=== PATIENT | female | born 1960 | race Caucasian/White ===

== ENCOUNTER 2020-06-01 15:11 | Emergency (ER) | payer BC ==
[2020-06-01 15:42] VITALS: BP 123/64; PULSE 97; TEMP 97.2; BMI 32.3
[2020-06-01 17:27] LABS: BASO % 1.3 % (0-2.0); EOS % 2.5 % (0-4.5); HEMOGLOBIN 13.2 GM/dL (10.7-15.3); LYMPH % 28.4 % (8-40); MCH 32.5 pg (25.7-33.7); MCHC 33.9 g/dl (32.0-36.0); MONO % 7.2 % (3.8-10.2); NEUT % 60.6 % (42.8-82.8); PLATELET COUNT 276 K/MM3 (134-434); RBC 4.06 M/mm3 (3.60-5.2); RDW 12.8 % (11.6-15.6); WHITE BLOOD COUNT 10.6 K/mm3 (4.0-10.0)
[2020-06-01 17:39] LABS: CHLORIDE 106 mmol/L (98-107); SODIUM 139 mmol/L (136-145)
[2020-06-01 17:42] LABS: CALCIUM 8.8 mg/dL (8.5-10.1)
[2020-06-01 17:43] LABS: ALBUMIN 3.3 g/dl (3.4-5.0); ANION GAP 4 MMOL/L (8-16); BLOOD UREA NITROGEN 15.3 mg/dL (7-18); CO2 28 mmol/L (21-32); GLUCOSE,RANDOM 186 mg/dL (74-106)
[2020-06-01 17:46] LABS: CREATININE 0.6 mg/dL (0.55-1.3); SGOT/AST 16 U/L (15-37); SGPT/ALT 42 U/L (13-61)
[2020-06-01 17:47] LABS: BILIRUBIN,TOTAL 0.2 mg/dL (0.2-1); TOT PROT 6.8 g/dl (6.4-8.2)
[2020-06-01 17:49] LABS: ALK PHOS 82 U/L (45-117)
[2020-06-01 18:25] LABS: LDH 204 U/L (84-246)
== END 2020-06-01 19:03 | disposition home or self-care (01) ==
LOC: JER 15:11
DX: Z20.822 Contact with and (suspected) exposure to COVID-19 (principal)
CPT/HCPCS: 36415; 71046-TC-FY; 80053; 82550; 82728; 83615; 84484; 85025; 86140; 93005; 93010; 99285-25; C9803; U0003

== ENCOUNTER 2020-08-16 10:23 | Emergency (ER) | payer BC ==
[2020-08-16 10:39] VITALS: BP 164/83; TEMP 98.5; BMI 29.2
[2020-08-16] MEDS ORDERED: ALBUTEROL SO4 2.5/IPRATROPIUM 0.5 INH SOL 3 ML VIAL.NEB. NEB ONE ×2 (10:52→10:55)
[2020-08-16] MEDS ORDERED: predniSONE 20 MG TABLET (UD) PO ONE (10:52)
[2020-08-16] MEDS ORDERED: predniSONE 20 MG TABLET (UD) ONE (10:55)
[2020-08-16] MEDS ORDERED: ALBUTEROL SO4 0.083% IH SOL 2.5 MG/3 ML VIAL.NEB. NEB ONE ×4 (13:13→15:15)
[2020-08-16 14:36] VITALS: PULSE 88
[2020-08-16] MEDS ORDERED: ACETAMINOPHEN 325 MG TABLET (FP) ONE (15:37)
== END 2020-08-16 17:07 | disposition home or self-care (01) ==
LOC: JER 10:23
PROC: 3E0F7GC Introduction of Other Therapeutic Substance into Respiratory Tract, Via Natural or Artificial Opening (ICD-10-PCS; principal; 2020-08-16)
DX: J45.21 Mild intermittent asthma with (acute) exacerbation (principal)
CPT/HCPCS: 71045-TC-FY; 99285-25; C9803; U0003; U0005

== ENCOUNTER 2021-10-29 13:29 | Observation (INO) | payer BC ==
[2021-10-29 14:03] VITALS: TEMP 98.9; BMI 30.2
[2021-10-29 15:09] LABS: HEMATOCRIT 43.5 % (32.4-45.2); HEMOGLOBIN 14.5 GM/dL (10.7-15.3); MCH 32.1 pg (25.7-33.7); MCHC 33.3 g/dl (32.0-36.0); MEAN CELL VOLUME 96.4 fl (80-96); PLATELET COUNT 239 10^3/uL (134-434); RBC 4.51 M/mm3 (3.60-5.2); RDW 12.4 % (11.6-15.6); WHITE BLOOD COUNT 13.7 K/mm3 (4.0-10.0)
[2021-10-29] MEDS ORDERED: ACETAMINOPHEN 1000 MG/100 ML BAG IVPB ONE (15:23)
[2021-10-29] MEDS ORDERED: FAMOTIDINE 20 MG/50 ML IVPB 20 MG/50 ML MG IVPB ONE ×2 (15:23→15:34)
[2021-10-29] MEDS ORDERED: MAG HYDROX/AL HYDROX/SIMETH -MYLANTA- ORAL SUSPENSION PO ONE (15:23)
[2021-10-29 15:30] LABS: CALCIUM 9.1 mg/dL (8.5-10.1)
[2021-10-29 15:31] LABS: ALBUMIN 3.5 g/dl (3.4-5.0)
[2021-10-29] MEDS ORDERED: ACETAMINOPHEN INJECTION 100 ML IVPB ONE (15:33)
[2021-10-29 15:34] LABS: CREATININE 0.6 mg/dL (0.55-1.3)
[2021-10-29] MEDS ORDERED: MAG HYDROX/AL HYDROX/SIMETH 30 ML UNIT-DOSE CUP ONE (15:34)
[2021-10-29 15:36] LABS: BILIRUBIN,TOTAL 0.3 mg/dL (0.2-1); TOT PROT 7.3 g/dl (6.4-8.2)
[2021-10-29] MEDS ORDERED: ASPIRIN 81 MG CHEWABLE TABLETS PO SCH (19:45)
[2021-10-29] MEDS ORDERED: ASPIRIN 325 MG TABLET ONE (22:29)
[2021-10-29] MEDS ORDERED: FAMOTIDINE 20 MG TABLET ONE (22:29)
[2021-10-29] MEDS ORDERED: LOSARTAN POTASSIUM 50 MG TABLET ONE (22:29)
[2021-10-29] MEDS: LOSARTAN POTASSIUM 25 MG TABLET PO SCH (22:52)
[2021-10-29] MEDS: INSULIN SLIDING SCALE (NOVOLOG) 1 VIAL SQ SCH (22:53)
[2021-10-29] MEDS: FAMOTIDINE 20 MG TABLET PO SCH (22:53)
[2021-10-30] MEDS ORDERED: ASPIRIN 81 MG CHEWABLE TABLETS PO SCH (00:32)
[2021-10-30 06:54] LABS: BASO % 0.8 % (0-2.0); EOS % 4.8 % (0-4.5); HEMATOCRIT 41.9 % (32.4-45.2); HEMOGLOBIN 14.1 GM/dL (10.7-15.3); LYMPH % 24.1 % (8-40); MCH 32.6 pg (25.7-33.7); MCHC 33.6 g/dl (32.0-36.0); MEAN CELL VOLUME 96.8 fl (80-96); MEAN PLT VOLUME 9.2 fl (7.5-11.1); MONO % 10.4 % (3.8-10.2); NEUT % 59.9 % (42.8-82.8); PLATELET COUNT 225 10^3/uL (134-434); RBC 4.33 M/mm3 (3.60-5.2); RDW 12.5 % (11.6-15.6); WHITE BLOOD COUNT 8.9 K/mm3 (4.0-10.0)
[2021-10-30 07:09] LABS: CALCIUM 8.9 mg/dL (8.5-10.1)
[2021-10-30 07:10] LABS: ALBUMIN 3.3 g/dl (3.4-5.0); BLOOD UREA NITROGEN 16.6 mg/dL (7-18); MAGNESIUM 2.2 mg/dL (1.8-2.4); PHOSPHOROUS 3.7 mg/dL (2.5-4.9)
[2021-10-30 07:11] LABS: CHOLESTEROL 182 mg/dL (50-200)
[2021-10-30 07:12] LABS: BILIRUBIN,TOTAL 0.4 mg/dL (0.2-1); TOT PROT 6.8 g/dl (6.4-8.2); TRIGLYCERIDES 202 mg/dL (0-150)
[2021-10-30 07:13] LABS: CREATININE 0.5 mg/dL (0.55-1.3); LDL CHOLESTEROL (ONLY SJRH) 131 mg/dL (5-100)
[2021-10-30 07:14] LABS: HDL CHOLESTEROL 39 mg/dL (40-60)
[2021-10-30] MEDS: INSULIN SLIDING SCALE (NOVOLOG) 1 VIAL SQ SCH ×2 (07:25→11:45)
[2021-10-30 08:39] LABS: EPI CELLS 6 /uL (0-25.1); HYALINE CASTS 3 /uL (0-3.1); PH,URINE 6.5 (5.0-8.0); URINE APPEARANCE CLEAR; URINE BACTERIA >9,000 /uL (0-1359); URINE BILIRUBIN NEGATIVE (NEGATIVE); URINE COLOR YELLOW; URINE GLUCOSE (UA) TRACE (NEGATIVE); URINE KETONE TRACE (NEGATIVE); URINE LEUK ESTERASE 1+ (NEGATIVE); URINE NITRITE POSITIVE (NEGATIVE); URINE PROTEIN NEGATIVE (NEGATIVE); URINE RBC 7 /uL (0-23.9); URINE UROBILINOGEN 0.2 mg/dL (0.2-1.0); URINE WBC 170 /uL (0-25.8)
[2021-10-30] MEDS ORDERED: ENOXAPARIN NA (PORCINE) 40 MG/0.4 ML DISP.SYRIN SQ SCH (10:00)
[2021-10-30] MEDS ORDERED: FAMOTIDINE 20 MG TABLET ONE (12:03)
[2021-10-30] MEDS ORDERED: ASPIRIN 81 MG CHEWABLE TABLETS ONE (12:03)
[2021-10-30] MEDS ORDERED: ENOXAPARIN NA (PORCINE) 40 MG/0.4 ML DISP.SYRIN SQ ONE (12:03)
[2021-10-30] MEDS: FAMOTIDINE 20 MG TABLET PO SCH (12:14)
[2021-10-30] MEDS: LOSARTAN POTASSIUM 25 MG TABLET PO SCH (12:14)
[2021-10-30 16:59] VITALS: BP 136/69; PULSE 91
== END 2021-10-30 17:00 | disposition home or self-care (01) ==
LOC: JER 13:29 → JERBED 15:21 → UNDOADMOB 15:21 → OBSVTOIN 20:43 → INTOOBSV 20:43 → JERBED 10-30 14:51
PROVIDERS: ADMIT Internal Medicine; ATTEND Internal Medicine
PROC: 3E033NZ Introduction of Analgesics, Hypnotics, Sedatives into Peripheral Vein, Percutaneous Approach (ICD-10-PCS; principal; 2021-10-30)
PROC: 3E023GC Introduction of Other Therapeutic Substance into Muscle, Percutaneous Approach (ICD-10-PCS; 2021-10-30)
PROC: 3E033GC Introduction of Other Therapeutic Substance into Peripheral Vein, Percutaneous Approach (ICD-10-PCS; 2021-10-30)
DX: R07.89 Other chest pain (principal); E11.9 Type 2 diabetes mellitus without complications; K57.92 Diverticulitis of intestine, part unspecified, without perforation or abscess without bleeding; Z20.822 Contact with and (suspected) exposure to COVID-19; I10 Essential (primary) hypertension; E78.5 Hyperlipidemia, unspecified; E66.8 Other obesity; Z68.30 Body mass index [BMI] 30.0-30.9, adult; J18.9 Pneumonia, unspecified organism
CPT/HCPCS: 0241U-QW; 36415; 71045-TC-FY; 78452-TC; 80053; 80061; 81003; 82962; 83036; 83735; 84100; 84443; 84484; 85025; 87086; 87186; 93005; 93010; 93017; 93306-TC; 99285-25; A9502; G0378

== ENCOUNTER 2022-03-23 11:38 | Emergency (ER) | payer BC ==
[2022-03-23 11:54] VITALS: BP 139/79; PULSE 105; RESP 18; TEMP 98.6; BMI 28.5
[2022-03-23] MEDS ORDERED: IBUPROFEN 400 MG TABLET (FP) PO ONE ×2 (12:14→12:22)
[2022-03-23] MEDS ORDERED: DEXAMETHASONE SOD PHOSPHATE 10 MG/1 ML VIAL IM ONE (12:14)
[2022-03-23] MEDS ORDERED: ALBUTEROL SO4 2.5/IPRATROPIUM 0.5 INH SOL 3 ML VIAL.NEB. NEB ONE ×2 (12:14→12:21)
[2022-03-23] MEDS ORDERED: ACETAMINOPHEN 325 MG TABLET (FP) PO ONE (12:14)
[2022-03-23] MEDS ORDERED: ACETAMINOPHEN 325 MG TABLET (FP) ONE (12:21)
[2022-03-23] MEDS ORDERED: DEXAMETHASONE SOD PHOSPHATE 10 MG/1 ML VIAL ONE (12:22)
== END 2022-03-23 18:18 | disposition home or self-care (01) ==
LOC: JER 11:38
PROC: 3E023NZ Introduction of Analgesics, Hypnotics, Sedatives into Muscle, Percutaneous Approach (ICD-10-PCS; principal; 2022-03-23)
PROC: 3E0F7GC Introduction of Other Therapeutic Substance into Respiratory Tract, Via Natural or Artificial Opening (ICD-10-PCS; 2022-03-23)
DX: U07.1 COVID-19 (principal)
CPT/HCPCS: 71046-TC-FY; 99284-25; J1100

== ENCOUNTER 2023-03-15 15:57 | Emergency (ER) | payer BC ==
[2023-03-15 16:03] VITALS: RESP 18; BMI 29.2
[2023-03-15] MEDS ORDERED: ALBUTEROL SO4 2.5/IPRATROPIUM 0.5 INH SOL 3 ML VIAL.NEB. NEB ONE ×2 (17:53→18:54)
[2023-03-15] MEDS ORDERED: ACETAMINOPHEN 500 MG TABLET (FP) PO ONE (17:53)
[2023-03-15] MEDS ORDERED: DEXAMETHASONE SOD PHOSPHATE 10 MG/1 ML VIAL PO ONE (17:53)
[2023-03-15] MEDS ORDERED: ACETAMINOPHEN 325 MG TABLET (FP) ONE ×2 (18:54→19:05)
[2023-03-15] MEDS ORDERED: DEXAMETHASONE SOD PHOSPHATE 10 MG/1 ML VIAL ONE (18:54)
[2023-03-15 19:51] VITALS: BP 151/82; PULSE 92; TEMP 98.3
== END 2023-03-15 19:55 | disposition home or self-care (01) ==
LOC: JER 15:57
PROC: 3E033GC Introduction of Other Therapeutic Substance into Peripheral Vein, Percutaneous Approach (ICD-10-PCS; principal; 2023-03-15)
PROC: 3E0F7GC Introduction of Other Therapeutic Substance into Respiratory Tract, Via Natural or Artificial Opening (ICD-10-PCS; 2023-03-15)
DX: R05.9 Cough, unspecified (principal); R06.2 Wheezing; R50.9 Fever, unspecified; R53.83 Other fatigue; R09.81 Nasal congestion; M79.10 Myalgia, unspecified site; U07.1 COVID-19; J20.9 Acute bronchitis, unspecified
CPT/HCPCS: 0241U-QW; 71046-TC-FY; 99284-25; J1100

== ENCOUNTER 2023-09-08 11:58 | Emergency (ER) | payer BC ==
[2023-09-08 12:48] VITALS: RESP 18; TEMP 97.6; BMI 34.5
[2023-09-08] MEDS ORDERED: methylPREDNISolone NA SUCC 125 MG/2 ML VIAL ONE (13:07)
[2023-09-08] MEDS ORDERED: ALBUTEROL SO4 2.5/IPRATROPIUM 0.5 INH SOL 3 ML VIAL.NEB. NEB ONE (13:07)
[2023-09-08] MEDS: methylPREDNISolone NA SUCC 125 MG/2 ML VIAL IVPUSH ONE (13:20)
[2023-09-08] MEDS: ALBUTEROL SO4 2.5/IPRATROPIUM 0.5 INH SOL 3 ML VIAL.NEB. NEB SCH (13:20)
[2023-09-08 14:10] LABS: BASO % 0.9 % (0-2.0); EOS % 6.1 % (0-4.5); HEMOGLOBIN 14.1 GM/dL (10.7-15.3); LYMPH % 38.6 % (8-40); MCH 32.3 pg (25.7-33.7); MCHC 33.7 g/dl (32.0-36.0); MEAN CELL VOLUME 95.9 fl (80-96); MEAN PLT VOLUME 8.5 fl (7.5-11.1); MONO % 7.3 % (3.8-10.2); NEUT % 47.1 % (42.8-82.8); PLATELET COUNT 254 10^3/uL (134-434); RBC 4.38 M/mm3 (3.60-5.2); RDW 12.8 % (11.6-15.6); WHITE BLOOD COUNT 8.2 K/mm3 (4.0-10.0)
[2023-09-08 15:03] LABS: POTASSIUM 4.3 mmol/L (3.5-5.1)
[2023-09-08 15:06] LABS: ALBUMIN 3.6 g/dl (3.4-5.0); BLOOD UREA NITROGEN 13.6 mg/dL (7-18); CALCIUM 8.7 mg/dL (8.5-10.1)
[2023-09-08 15:09] LABS: CREATININE 0.5 mg/dL (0.55-1.3)
[2023-09-08 15:10] LABS: BILIRUBIN,TOTAL 0.5 mg/dL (0.2-1)
[2023-09-08 15:11] LABS: TOT PROT 6.9 g/dl (6.4-8.2)
[2023-09-08 15:15] LABS: N-TERMINAL BNP 34.3 pg/ml (5-125)
[2023-09-08] MEDS ORDERED: ALBUTEROL SO4 2.5/IPRATROPIUM 0.5 INH SOL 3 ML VIAL.NEB. NEB SCH (15:15)
[2023-09-08] MEDS: MAGNESIUM 1GM/D5W - 1 GM/100 ML IVPB IVPB ONE (15:26)
[2023-09-08 15:46] VITALS: BP 134/60; PULSE 78
== END 2023-09-08 15:47 | disposition home or self-care (01) ==
LOC: JER 11:58
PROC: 3E033NZ Introduction of Analgesics, Hypnotics, Sedatives into Peripheral Vein, Percutaneous Approach (ICD-10-PCS; principal; 2023-09-08)
PROC: 3E0F7GC Introduction of Other Therapeutic Substance into Respiratory Tract, Via Natural or Artificial Opening (ICD-10-PCS; 2023-09-08)
DX: R06.02 Shortness of breath (principal); J45.41 Moderate persistent asthma with (acute) exacerbation; Z20.822 Contact with and (suspected) exposure to COVID-19
CPT/HCPCS: 0241U-QW; 36415; 71045-TC-FY; 80053; 83880; 84484; 85025; 93005; 93010; 99285-25

== ENCOUNTER 2024-10-20 19:05 | Emergency (ER) | payer BC ==
[2024-10-20 19:12] VITALS: TEMP 97.9; BMI 34.0
[2024-10-20] MEDS ORDERED: ACETAMINOPHEN INJECTION 100 ML ONE (20:26)
[2024-10-20] MEDS: SODIUM CHLORIDE 1,000 ML IV STA (20:30)
[2024-10-20] MEDS: ACETAMINOPHEN 1000 MG/100 ML BAG IVPB ONE (20:30)
[2024-10-20 20:53] LABS: POTASSIUM 4.9 mmol/L (3.5-5.1)
[2024-10-20 20:57] LABS: BLOOD UREA NITROGEN 14.3 mg/dL (7-18); CALCIUM 9.9 mg/dL (8.5-10.1)
[2024-10-20 20:58] LABS: ALBUMIN 3.6 g/dl (3.4-5.0)
[2024-10-20 21:01] LABS: CREATININE 0.6 mg/dL (0.55-1.3)
[2024-10-20 21:02] LABS: BILIRUBIN,TOTAL 0.3 mg/dL (0.2-1); TOT PROT 6.8 g/dl (6.4-8.2)
[2024-10-20] MEDS ORDERED: IBUPROFEN 600 MG TABLET (FP) PO ONE (22:45)
[2024-10-20] MEDS: IBUPROFEN 600 MG TABLET (FP) PO ONE (22:50)
[2024-10-20 22:59] VITALS: BP 132/78; PULSE 78; RESP 18
== END 2024-10-20 22:59 | disposition home or self-care (01) ==
LOC: JER 19:05
PROC: 3E033NZ Introduction of Analgesics, Hypnotics, Sedatives into Peripheral Vein, Percutaneous Approach (ICD-10-PCS; principal; 2024-10-20)
PROC: 3E0337Z Introduction of Electrolytic and Water Balance Substance into Peripheral Vein, Percutaneous Approach (ICD-10-PCS; 2024-10-20)
DX: E11.65 Type 2 diabetes mellitus with hyperglycemia (principal); Z79.84 Long term (current) use of oral hypoglycemic drugs; R51.9 Headache, unspecified
CPT/HCPCS: 36415; 80053; 82962; 99284-25; J0131